=== PATIENT | male | born 1950 | race Caucasian/White ===

== ENCOUNTER 2019-01-02 13:29 | Emergency (ER) | payer OTHER, MEDICARE ==
[~2019-01-02] VITALS: Ht 180.3 cm; Wt 102.1 kg
[~2019-01-02 13:29] MED LIST: Aspir 8181 MG PO; CARV6.25 PO; CLOP75 PO; FISH1000 PO; GABA300 PO; Lipitor80 MG PO; Lisinopril2.5 MG PO; NITR.4SL SL; OMEG1CAP30
[2019-01-02 14:55] LABS: Alanine Aminotransfer (ALT/SGP 25 U/L (12-78); Albumin, Blood 3.5 g/dL (3.4-5.0); Albumin/Globulin Ratio 1.2 (0.8-1.8); Alk Phos 55 U/L (50-136); Anion Gap 6 mmol/L (6-16); Aspartate Aminotrans (AST/SGOT 20 U/L (12-37); Bilirubin, Total 1.2 mg/dL (0.1-1.0); Blood Urea Nitrogen 18 mg/dL (8-24); Bun/Creatinine Ratio 19.7 (12.0-20.0); CO2, Blood 25 mmol/L (21-32); Calcium, Blood 8.3 mg/dL (8.5-10.1); Chloride, Blood 107 mmol/L (98-108); Creatinine, Blood 0.92 mg/dL (0.60-1.20); Globulin, Blood 2.9 g/dL (2.2-4.0); Glomerular Filtration Rate >60 (60-); Glucose, Blood 110 mg/dL (70-99); Sodium, Blood 138 mmol/L (136-145); Total Protein, Blood 6.4 g/dL (6.4-8.2)
[2019-01-02] MEDS ORDERED: POTCHL20ER PO (15:30)
[2019-02-01] MEDS ORDERED: EZET10 PO (16:54)
[2019-02-01] MEDS ORDERED: Ibuprofen Ib200 MG PO (16:57)
[2019-02-01] MEDS ORDERED: TAMS.4ER PO (16:57)
[2019-02-01] MEDS ORDERED: PRESERVISION A1 EACH PO (16:58)
[2019-02-01] MEDS ORDERED: VITAMIN D31000 UNIT (17:00)
[2019-02-01] MEDS ORDERED: ACID REDUCER 1150 MG PO (17:00)
== END 2019-01-02 15:40 | disposition left against medical advice (07) ==
LOC: ER 13:29
PROVIDERS: Emergency Medicine
DX: I25.10 Atherosclerotic heart disease of native coronary artery without angina pectoris (principal); E87.6 Hypokalemia; E78.5 Hyperlipidemia, unspecified; I25.2 Old myocardial infarction; Z79.899 Other long term (current) drug therapy; Z79.82 Long term (current) use of aspirin; Z79.01 Long term (current) use of anticoagulants
CPT/HCPCS: 80053; 82330; 84484; 93005; 93010; 99284-25

== ENCOUNTER 2019-02-02 09:21 | Day surgery (SDC) | payer OTHER ==
[~2019-02-02] VITALS: Ht 185.4 cm; Wt 96.0 kg
[~2019-02-02 09:21] MED LIST changes: +ACID REDUCER 1150 MG PO; +EZET10 PO; +Ibuprofen Ib200 MG PO; +POTCHL20ER PO; +PRESERVISION A1 EACH PO; +TAMS.4ER PO; +VITAMIN D31000 UNIT
--- NOTE | 2019-02-02 14:46 | NUR ---
PT RETURNED TO RECOVERY ROOM IN RECLINER. RIGHT TR BAND SITE SOFT NON-TENDER WITH NO HEMATOMA AND NO PULSATILE BLEEDING. PT DENIES CHEST PAIN AND IS EATING LUNCH. CALL LIGHT IN REACH.
--- NOTE | 2019-02-02 15:25 | NUR ---
DR KING IN ROOM TO SEE PT.
--- NOTE | 2019-02-02 15:52 | NUR ---
FULL REPORT PROVIDED ZENIA MELO TO ASSUME CARE OF PT.
--- NOTE | 2019-02-02 16:27 | NUR ---
1620 2 cc air removed from tr-band. 1627: 2 cc air removed from tr-band. Pt stable slight pain.
--- NOTE | 2019-02-02 16:37 | NUR ---
1615: sbar from Cruz Harvey RN IV NS w/ 300 sebastien. Pt in relcliner preparing for discharge. Pt stable. slight right arm and shoulder pain.
--- NOTE | 2019-02-02 16:45 | NUR ---
All air out of tr-band. Band in place, pt voided up ambulatory bowen well. Pt vss.
--- NOTE | 2019-02-02 17:20 | NUR ---
Pt with tr-band removed dabbed clean applied cloth dot to right radial site. No bleeding or hematoma. Reviewed discharge instructions w/ patient and Anais. Pt dressed, reviewed no ibuprofen as well as follow up appointments. Iv removed cath intact total fluid 800mls. Pt verbalized discharge instructions.
--- NOTE | 2019-02-02 17:24 | NUR ---
Pt discharge via wheelchair to private auto. Pt stable.
== END 2019-02-03 06:58 | disposition home or self-care (01) ==
LOC: MHTC 09:21
DX: I25.10 Atherosclerotic heart disease of native coronary artery without angina pectoris (principal); I10 Essential (primary) hypertension; I25.2 Old myocardial infarction; E78.5 Hyperlipidemia, unspecified; Z79.899 Other long term (current) drug therapy; Z79.82 Long term (current) use of aspirin
CPT/HCPCS: 85347; 93005; 93010; 93454; 93571; 93572; 99152; 99153; C1769; C1887; C1894; J1644; J2250; J3010; J7040; Q9967